=== PATIENT | female | born 1960 | race Caucasian/White ===

== ENCOUNTER 2018-06-14 11:58 | Emergency (ER) | payer BC, OTHER ==
[~2018-06-14] VITALS: Ht 154.9 cm; Wt 75.7 kg
[~2018-06-14 11:58] MED LIST: BIRTH CONTROL PILL; Z.0.SYNTHROID50 MCG PO
--- OUTSIDE RECORDS SUMMARY | 2018-06-14 12:02 | XMS REPORT | Summary of Care ---
Author Author ELIUD MEYER Organization Unknown Address [facility] Phone Unavailable Care Team Providers Care Literacy Specialist Name Role Phone ELIUD MEYER Unavailable Unavailable TRIXIE BECK Unavailable Unavailable PAZ Fields, APOLLO Unavailable Unavailable MIESHA ROTH [place], MARIUSZ KHOURY Unavailable Unavailable MIESHA Fields, MARIUSZ Velasco Unavailable Unavailable Unavailable Functional Status Name Dates Details Functional status health issues are not documented Status: Name Dates Details Cognitive status health issues are not documented Status: Problems Name Dates Details Abrasion of hand (914.0, S60.519A) Status: Active Flu vaccine need (V04.81, Z23) Status: Active Need for prophylactic vaccination against diphtheria, tetanus, acellular pertussis, poliovirus, and hepatitis B virus (V06.8, Z23) Status: Active Cough (786.2, R05) Status: Active Qmbvbpbrpa-gyvqxld-vcemqgtyr (DTP) vaccination (V06.1, Z23) Status: Active Encounter for PPD test (V74.1, Z11.1) Status: Active Wheezing (786.07, R06.2) Status: Active Acute sinusitis (461.9, J01.90) Status: Active MARLENE (serous otitis media) (381.4, H65.90) Status: Active Warts (078.10, B07.9) Status: Active Acute pharyngitis (462, J02.9) Status: Active Allergic contact dermatitis due to plants, except food (692.6, L23.7) Status: Active Headache, migraine (346.90, G43.909) Status: Active Essential (primary) hypertension (401.9, I10) Status: Active Bronchospasm (519.11, J98.01) Status: Active Limb pain (729.5, M79.609) Status: Active Other seasonal allergic rhinitis (477.8, J30.2) Status: Active Anxiety (300.00, F41.9) Status: Active Acute upper respiratory infection (465.9, J06.9) Status: Active Acute bronchitis (466.0, J20.9) Status: Active Elevated blood pressure reading without diagnosis of hypertension (796.2, R03.0) Status: Active Hyperlipidemia (272.4, E78.5) Status: Active Hypothyroidism (244.9, E03.9) Status: Active Enlarged lymph node in neck (785.6, R59.0) Status: Active Medications Name Dates Details Levothyroxine Sodium 25 MCG Oral Tablet TAKE 1.5 TABLET DAILY Quantity: 135 GREEN P.A., ELIUD * Start : 12-Aug-2016 Active Uzdryxqoiy-PSES-Rxbymvge 50-325-40 MG Oral Tablet TAKE 1 TABLET 3 TIMES DAILY NEEDED. * Quantity: 30 Refills: 2 TIGIST P.A., TRIXIE * Start : 18-Sep-2016 Active LORazepam 0.5 MG Oral Tablet TAKE 1 TABLET EVERY 12 HOURS NEEDED. * Quantity: 20 Refills: 0 APOLLO MULLEN M.D. * Start : 31-Mar-2017 Active PredniSONE 10 MG Oral Tablet take 3 po x 3 days then 2 po x3 days then 1 po x 3 days * Quantity: 18 Refills: 0 GREEN P.A., ELIUD * Start : 28-Aug-2017 Active Allergies and Adverse Reactions Name Dates Details Doxycycline Hyclate CAPS (Allergy) Status: Active Erythromycin TABS (Allergy) Status: Active Sulfa Drugs (Allergy) Status: Active Past Medical History Name Dates Details History of Dysthymic Disorder (V11.2) Status: Resolved History of Migraine without status migrainosus, not intractable (346.90, G43.909) Status: Resolved History of Skin Cancer (V10.83) Status: Resolved Procedures Procedure Dates Details [QL] CBC (INCLUDES DIFF/PLT) Date: 28-Aug-2017 History of Section Completed History of Diagnostic Cystoscopy Completed Immunization Name Dates Details Influenza on: 06-Apr-2012 Fluzone INJ Lot #: [id number] on: 28-Mar-2014 Tdap (Adacel) Lot #: [id number] on: 28-Mar-2014 Fluzone Quadrivalent 0.5 ML Intramuscular Suspension Lot #: [id number] on: 30-Mar-2015 Fluzone Quadrivalent 0.5 ML Intramuscular Suspension Lot #: [id number] on: 28-Mar-2016 Fluzone Quadrivalent 0.5 ML Intramuscular Suspension Prefilled Syringe Lot #: [id number] on: 31-Mar-2017 Family History Name Dates Details Family history of breast cancer (V16.3, Z80.3) Status: Active Name Dates Details Family history of Throat cancer (149.0, C14.0) Status: Active Social History Name Dates Details - Status: Name Dates Details Never smoker Vital Signs Date Test Result Details [id number] BP Systolic 122 mm[Hg] Status: Comments: Location: LUE; Position: Sitting BP Diastolic 85 mm[Hg] Status: Comments: Location: LUE; Position: Sitting Height 61 in Status: Weight 171.375 lb Status: Body Mass Index Calculated 32.38 kg/m2 Status: Body Surface Area Calculated 1.77 m2 Status: Temperature 97.6 f Status: Comments: Method: Temporal Respiration Rate 16 /min Status: Heart Rate 70 /min Status: Physical Findings 5 Status: Comments: Pain Scale Results Date Description Value Details Results not documented Plan of Care Name Dates Details Planned Observations Planned Goals not documented Interventions Provided Medication Changes* PredniSONE 10 MG Oral Tablet - Start Labs/Procedures/Imaging* [[facility]] CBC (INCLUDES DIFF/PLT); To Be Done: 28 Aug 2017 Instructions* Patient Specific Education Given; Done: 28 Aug 2017 Medications/Immunizations Administered* MethylPREDNISolone Acetate 80 MG/ML Injection Suspension Instructions Name Dates Details Instructions not documented Encounters Appointment; ELIUD GREEN PSnadie Encounter Diagnosis: Problem not documented On: 27-Nov-2015 9:45 Appointment; JASMIN MARTIN M.D. Encounter Diagnosis: Problem not documented On: 03-Jan-2016 10:15 Appointment; JASMIN MARTIN M.D. Encounter Diagnosis: Problem not documented On: 17-Jan-2016 15:15 Appointment; JASMIN MARTIN M.D. Encounter Diagnosis: Problem not documented On: 30-Jan-2016 16:15 Appointment; ELIUD GREEN PSandie Encounter Diagnosis: Problem not documented On: 28-Mar-2016 15:30 Appointment; JASMIN MARTIN M.D. Encounter Diagnosis: Problem not documented On: 04-Apr-2016 9:30 Appointment; TRIXIE ESCOTO PSandie Encounter Diagnosis: Problem not documented On: 18-Sep-2016 8:00 Appointment; APOLLO MULLEN M.D. Encounter Diagnosis: Problem not documented On: 31-Mar-2017 12:00 Appointment; BHARATH PIERSON P.A. Encounter Diagnosis: Problem not documented On: 03-Apr-2017 9:15 Appointment; ELIUD GREEN P.A. Encounter Diagnosis: Problem not documented On: 11-May-2017 7:45 Appointment; ELIUD GREEN P.A. Encounter Diagnosis: Problem not documented On: 11-Aug-2017 7:45 Appointment; ELIUD GREEN P.A. Encounter Diagnosis: Problem not documented On: 11-Aug-2017 7:45 Appointment; ELIUD GREEN P.A. Encounter Diagnosis: Problem not documented On: 28-Aug-2017 13:00
--- OUTSIDE RECORDS SUMMARY | 2018-06-14 12:02 | XMS REPORT ---
Author Author [facility] Address Unknown Phone Unavailable Care Team Providers Care Director Of Undergraduate Admissions Name Role Phone Unavailable Unavailable Payers Payer Name Policy Type Policy Number Effective Date Expiration Date Problems This patient has no known problems. Allergies, Adverse Reactions, Alerts This patient has no known allergies or adverse reactions. Medications This patient has no known medications.
--- NOTE | 2018-06-14 12:52 | Diagnostic Imaging Report ---
Exam: Radiographs of the right hand 3 views HISTORY: Pain COMPARISON: None available. FINDINGS: Bones: No acute displaced fracture. Osseous alignment is within normal limits. Joints: Scattered degenerative change. No osseous erosion. Soft tissues: The soft tissues appear unremarkable. IMPRESSION: Scattered degenerative change. No osseous erosion. Signed by: Dr. Jordy Miller M.D. on 06/14/2018 12:49 PM
--- NOTE | 2018-06-14 12:58 | Diagnostic Imaging Report ---
Radiographs of the right wrist - 3 views HISTORY: Pain COMPARISON: None available. FINDINGS: Bones: No acute displaced fracture. Osseous alignment is within normal limits. Joints: Scattered degenerative change. No osseous erosion. Soft tissues: The soft tissues appear unremarkable. IMPRESSION: Scattered degenerative change. No osseous erosion. Signed by: Dr. Jordy Miller M.D. on 06/14/2018 12:55 PM
--- NOTE | 2018-06-14 17:28 | NUR ---
thumb split wrist ortho device placed per md. +pms before and after placement.
== END 2018-06-14 13:15 | disposition home or self-care (01) ==
LOC: FSED 11:58
DX: S60.211A Contusion of right wrist, initial encounter (principal); G56.01 Carpal tunnel syndrome, right upper limb; S63.521A Sprain of radiocarpal joint of right wrist, initial encounter; S63.511A Sprain of carpal joint of right wrist, initial encounter; X50.1XXA Overexertion from prolonged static or awkward postures, initial encounter; Y92.008 Other place in unspecified non-institutional (private) residence as the place of occurrence of the external cause; E03.9 Hypothyroidism, unspecified
CPT/HCPCS: 99284